=== PATIENT | female | born 1995 | race Two or more races ===

== ENCOUNTER 2017-11-08 05:28 | Emergency (ER) | payer BC, MEDICAID ==
[~2017-11-08] VITALS: Ht 162.6 cm; Wt 71.7 kg
[~2017-11-08 05:28] MED LIST: CIPRO500 MG PO
[2017-11-08 05:33] VITALS: BP 140/77
[2017-11-08] MEDS ORDERED: NKM (05:34)
--- NOTE | 2017-11-08 05:52 | Emergency Room Report ---
History of Present Illness General Chief Complaint: Nausea, Vomiting, and Diarrhea Source: Patient Present Illness HPI Is a 22-year-old female with no past medical history. She presents with chief complaint abdominal pain with vomiting and diarrhea. Onset was around 7 PM. Multiple episode vomiting and diarrhea. Vomiting is nonbloody nonbilious. Diarrhea is watery. No sick contact. No fever. Cramping pain described as 7/ 10. Allergies: Coded Allergies: No Known Allergies (Unverified , 07/22/13) Patient History Past Medical History: see triage record, old chart reviewed Past Surgical History: none Pertinent Family History: none Social History: Denies: smoking Last Menstrual Period: 10/13/17 Now: No : 0 Para: 0 Immunizations: other Reviewed Nursing Documentation: PMH: Agreed, PSxH: Agreed Nursing Documentation-PMH Past Medical History: No Stated History Review of Systems Eye: Denies: eye pain, blurred vision ENT: Denies: ear pain, nose congestion, throat swelling Respiratory: Denies: cough, shortness of breath Cardiovascular: Denies: chest pain, palpitations Gastrointestinal: Reports: abdominal pain, diarrhea, nausea, vomiting Musculoskeletal: Denies: back pain, joint pain Skin: Denies: rash Neurological: Denies: headache, numbness Endocrine: Denies: increased thirst, increased urine Hematologic/Lymphatic: Denies: easy bruising All Other Systems: negative except mentioned in HPI Physical Exam Vital Signs Date Time Temp Pulse Resp B/P (MAP) Pulse Ox O2 Delivery O2 Flow Rate FiO2 11/08/17 05:30 98.4 134 18 140/77 97 Room Air vitals with tachycardia Sp02 EP Interpretation: reviewed, normal General Appearance: well appearing, no apparent distress, alert Head: normocephalic, atraumatic Eyes: bilateral eye PERRL, bilateral eye EOMI ENT: hearing grossly normal, normal pharynx Neck: full range of motion, supple, no meningismus Respiratory: chest non-tender, lungs clear, normal breath sounds Cardiovascular #1: regular rate, rhythm, no murmur, tachycardia - HR 115 Gastrointestinal: non tender, no mass, no organomegaly, no bruit, non-distended , abnormal bowel sounds Musculoskeletal: back normal, gait/station normal, normal range of motion Psychiatric: mood/affect normal Skin: warm/dry Medical Decision Making Diagnostic Impression: Primary Impression: Nausea, vomiting, and diarrhea ER Course Patient with abdominal cramps with nausea vomiting and diarrhea. Most likely viral gastroenteritis. No evidence of obstruction or acute abdomen. She felt better after IV hydration and pain control. Last Vital Signs Date Time Temp Pulse Resp B/P (MAP) Pulse Ox O2 Delivery O2 Flow Rate FiO2 11/08/17 05:33 98.4 128 18 140/77 97 Room Air Status: improved Disposition: HOME, SELF-CARE Condition: Stable Scripts Ondansetron Odt* (ZOFRAN ODT*) 4 Mg Tab.rapdis 4 MG ORAL Q6H Y for Nausea & Vomiting, #10 TAB 0 Refills Prov: JHONNY PALOMARES M.D. 11/08/17 Patient Instructions: DIET, Vomiting or Diarrhea [4yr-Adult] Additional Instructions: Followup with your Dr. in 2-3 days and not better. Return if symptom worsen. JHONNY PALOMARES M.D. Nov 08, 2017 05:52
[2017-11-08] MEDS ORDERED: ZOFRAN ODT4 MG ORAL (06:11)
[2017-11-08] MEDS: Ketorolac 30mg Inj IV ONE (06:13)
[2017-11-08 06:15] LABS: APPEARANCE,URINE CLEAR; BILIRUBIN, URINE NEGATIVE (NEGATIVE); COLOR,URINE PALE YELLOW; GLUCOSE, URINE (UA) NEGATIVE (NEGATIVE); KETONES,URINE NEGATIVE (NEGATIVE); LEUKOCYTE ESTERASE ,URINE 1+ (NEGATIVE); NITRITE,URINE NEGATIVE (NEGATIVE); PH,URINE 6 (4.5-8.0); PROTEIN,URINE NEGATIVE (NEGATIVE); UROBILINOGEN,URINE NORMAL MG/DL (0.0-1.0)
[2017-11-08 06:22] LABS: HEMATOCRIT 42.7 % (37.0-47.0); HEMOGLOBIN 13.8 G/DL (12.0-16.0); MEAN CORPUSCULAR VOLUME 84 FL (80-99); PLATELET COUNT 236 K/UL (150-450); RED BLOOD COUNT 5.06 M/UL (4.20-5.40); RED CELL DISTRIBUTION WIDTH 11.8 % (11.6-14.8); WHITE BLOOD COUNT 14.9 K/UL (4.8-10.8)
[2017-11-08 06:24] LABS: ANION GAP 9 mmol/L (5-15); BLOOD UREA NITROGEN 12 mg/dL (7-18); CALCIUM 9.1 MG/DL (8.5-10.1); CARBON DIOXIDE 26 MMOL/L (21-32); CHLORIDE 103 MMOL/L (98-107); CREATININE 0.7 MG/DL (0.55-1.30); SODIUM 138 MMOL/L (136-145)
[2017-11-08 06:28] LABS: ALANINE AMINOTRANSFERASE 17 U/L (12-78); ALBUMIN 4.2 G/DL (3.4-5.0); ALBUMIN/GLOBULIN RATIO 1.1 (1.0-2.7); ALKALINE PHOSPHATASE 82 U/L (46-116); ASPARTATE AMINO TRANSFERASE 14 U/L (15-37); BILIRUBIN,TOTAL 0.6 MG/DL (0.2-1.0)
[2017-11-08] MEDS: Sodium Chloride 500ML 500 ML IV ONE (07:35)
[2017-11-08] MEDS: cefTRIAXone 1 GM in NS 55 ML IVPB ONE (07:35)
[2017-11-08 08:18] VITALS: BP 115/70
[2017-11-08 08:57] VITALS: BP 111/67
== END 2017-11-08 09:10 | disposition home or self-care (01) ==
LOC: EMR 05:54
DX: R11.2 Nausea with vomiting, unspecified (principal); R19.7 Diarrhea, unspecified; R10.9 Unspecified abdominal pain
CPT/HCPCS: 36415; 80053; 81003; 81025; 83690; 85025; 87086; 96361; 96365; 96375; 99284; J0696; J1885; J2405; J7040